=== PATIENT | male | born 1960 ===

== ENCOUNTER 2018-08-10 11:38 | Outpatient (CLI) | payer OTHER ==
[~2018-08-10] VITALS: Ht 167.6 cm; Wt 61.2 kg
== END 2018-08-10 12:00 | disposition home or self-care (01) ==
LOC: OFIC 805 11:38
DX: J01.80 Other acute sinusitis (principal); R09.81 Nasal congestion

== ENCOUNTER 2018-08-16 07:50 | Outpatient (CLI) | payer OTHER ==
[~2018-08-16] VITALS: Ht 152.4 cm; Wt 61.2 kg
== END 2018-08-16 08:10 | disposition home or self-care (01) ==
LOC: OFIC 805 07:50
DX: R09.81 Nasal congestion (principal); J01.80 Other acute sinusitis; R04.0 Epistaxis

== ENCOUNTER 2018-08-16 10:59 | Outpatient (CLI) | payer OTHER | END 2018-08-16 11:05 | disposition home or self-care (01) | LOC: LAB 10:59 | DX: J32.8 Other chronic sinusitis (principal) ==

== ENCOUNTER 2018-08-30 11:16 | Outpatient (CLI) | payer OTHER | END 2018-08-30 11:35 | disposition home or self-care (01) | LOC: OFIC 805 11:16 | DX: J01.80 Other acute sinusitis (principal); R09.81 Nasal congestion ==